=== PATIENT | female | born 2000 | race Two or more races ===

== ENCOUNTER 2018-11-08 09:59 | Inpatient (IN) | payer OTHER ==
[~2018-11-08] VITALS: Ht 149.9 cm; Wt 180.0 kg
[2018-11-26] MEDS ORDERED: ACETAMINOPHEN325 M1 PO (10:46)
== END 2018-11-26 11:57 | disposition home or self-care (01) | DRG 807 ==
LOC: OB/GYN 11-15 12:00 → LDR 11-23 21:16 → OB/GYN 11-24 16:01
PROVIDERS: ADMIT Specialist
PROC: 10E0XZZ Delivery of Products of Conception, External Approach (ICD-10-PCS; principal; 2018-11-23)
PROC: 10907ZC Drainage of Amniotic Fluid, Therapeutic from Products of Conception, Via Natural or Artificial Opening (ICD-10-PCS; 2018-11-23)
PROC: 3E033VJ Introduction of Other Hormone into Peripheral Vein, Percutaneous Approach (ICD-10-PCS; 2018-11-23)
PROC: 4A1HXCZ Monitoring of Products of Conception, Cardiac Rate, External Approach (ICD-10-PCS; 2018-11-23)
DX: O80 Encounter for full-term uncomplicated delivery (principal); Z37.0 Single live birth; Z3A.40 40 weeks gestation of pregnancy

== ENCOUNTER 2022-05-19 10:15 | Inpatient (IN) | payer OTHER ==
[~2022-05-19] VITALS: Ht 157.5 cm; Wt 104.3 kg
[~2022-05-19 10:15] MED LIST: ACETAMINOPHEN325 M1 PO
[2022-05-21] MEDS ORDERED: TENDERA-OB SOF1 EACH PO (12:32)
== END 2022-05-23 14:30 | disposition home or self-care (01) | DRG 787 ==
LOC: OB/GYN 05-21 10:15 → O/R 05-21 11:41 → OB/GYN 05-21 13:15
PROVIDERS: ADMIT Specialist; ATTEND Specialist
PROC: 4A1HXCZ Monitoring of Products of Conception, Cardiac Rate, External Approach (ICD-10-PCS; 2022-05-21)
PROC: 10D00Z1 Extraction of Products of Conception, Low, Open Approach (ICD-10-PCS; principal; 2022-05-21 13:15)
DX: O33.8 Maternal care for disproportion of other origin (principal); O98.82 Other maternal infectious and parasitic diseases complicating childbirth; O48.0 Post-term pregnancy; Z3A.41 41 weeks gestation of pregnancy; Z37.0 Single live birth